=== PATIENT | male | born 2005 | race Caucasian/White ===

== ENCOUNTER 2025-02-10 20:11 | Emergency (ER) | payer MEDICAID ==
[~2025-02-10] VITALS: Ht 170.2 cm; Wt 62.7 kg
[2025-02-10 21:52] LABS: BASOPHILS % (AUTO) 0.5 % (0-1); EOSINOPHILS # (AUTO) 0.1 X10'3 (0-0.9); EOSINOPHILS % (AUTO) 1.9 % (0-6); HEMATOCRIT 46.8 % (42.0-52.0); HEMOGLOBIN 16.5 g/dl (14.0-17.9); LYMPHOCYTES # (AUTO) 2.3 X10'3 (1.1-4.8); LYMPHOCYTES % (AUTO) 30.8 % (21-51); MEAN CORPUSCULAR HEMOGLOBIN 29.3 PG (27.0-31.0); MEAN CORPUSCULAR HGB CONC 35.2 g/dL (33.0-36.5); MEAN CORPUSCULAR VOLUME 83.3 FL (78-98); MEAN PLATELET VOLUME 9.2 FL (7.4-10.4); MONOCYTES # (AUTO) 0.7 X10'3 (0-0.9); NEUTROPHILS # (AUTO) 4.3 X10'3 (1.8-7.7); NEUTROPHILS % (AUTO) 57.8 % (42-75); PLATELET COUNT 176 X10'3 (140-440); RED BLOOD COUNT 5.62 X10'6 (4.70-6.10); RED CELL DISTRIBUTION WIDTH 13.1 % (11.5-14.5); WHITE BLOOD COUNT 7.4 X10'3 (4.5-11.0)
[2025-02-10 21:54] VITALS: BP 129/81; PULSE 73; O2SAT 100
[2025-02-10 21:59] VITALS: RESP 16
[2025-02-10 22:13] LABS: ALANINE AMINOTRANSFERASE 26 U/L (12-78); ALBUMIN 4.5 G/DL (3.4-5.0); ALBUMIN/GLOBULIN RATIO 1.6 (1.1-1.5); ALKALINE PHOSPHATASE 86 IU/L (46-116); ANION GAP 9 (8-16); ASPARTATE AMINO TRANSFERASE 21 U/L (10-37); BILIRUBIN,TOTAL 0.6 MG/DL (0.1-1.0); BLOOD UREA NITROGEN 12 MG/DL (7-18); CHLORIDE 107 MMOL/L (99-107); CREATININE 0.92 MG/DL (0.60-1.10); GLUCOSE 95 MG/DL (70-104); LIPASE 25 U/L (16-77); POTASSIUM 4.1 MMOL/L (3.5-5.1); SODIUM 145 MMOL/L (135-145); TOTAL PROTEIN 7.3 G/DL (6.4-8.2); eCRCL 113 ML/MIN; eGFR > 90 ML/MIN
[2025-02-10 22:29] LABS: BILIRUBIN,URINE NEGATIVE (Neg); CLARITY,URINE CLEAR (Clear); COLOR,URINE YELLOW (Yellow); GLUCOSE, URINE NEGATIVE (Neg); KETONES,URINE NEGATIVE (Neg); LEUKOCYTE ESTERASE ,URINE NEGATIVE (Neg); NITRITES, URINE NEGATIVE (Neg); OCCULT BLOOD,URINE NEGATIVE (Neg); PROTEIN,URINE NEGATIVE (Neg)
[2025-02-10 22:30] LABS: UA COLLECTION TYPE CLN CATCH MIDSTREAM
[2025-02-10] MEDS: pantoprazole 40mg Tablet.DR PO STA (22:45)
--- NOTE | 2025-02-10 23:19 | Physician Documentation ---
History of Present Illness Chief Complaint: Abdominal Pain Stated Complaint: ABD PAIN Time Seen by MD: 22:12 Source: patient, family Mode of Arrival: POV HPI Patient is seen today with complaints of generalized abdominal discomfort that is been going on off and on for few weeks. Patient is seen today with his he states that he definitely drinks too much soda and caffeinated beverages and none of wire. Patient states he has previously had similar symptoms to this and was told he had gastritis. Patient denies any decreased appetite or fevers or chills or dysuria or the urinary urgency or frequency or chest pain or shortness of breath or nausea, vomiting, diarrhea. Patient has no other concern or complaint at this time. He denies any significant a leaving or aggravating factors. He denies any constipation. He denies any changes in bowel or bladder habits. Review of Systems Constitutional: Denies: chills, fever, weakness Eyes: Denies: pain, blurred vision ENT: Denies: ear pain, nose pain, throat pain, mouth pain Respiratory: Denies: cough, shortness of breath Cardiovascular: Denies: chest pain, palpitations Gastrointestinal: Denies: abdominal pain, nausea, vomiting Genitourinary: Denies: burning, dysuria Male Genitalia: Denies: penile discharge, testicular pain Neurological: Denies: headache, dizziness Musculoskeletal: Denies: pain, swelling Integumentary: Denies: rash, lesions Allergic/Immunologic: Denies: hives, itching Hematologic/Lymphatic: Denies: no symptoms reported Psychiatric: Denies: depression, anxiety Physical Exam Vital Signs: Temperature: 98.0, Source: Oral, Heart Rate: 73, Respiratory Rate: 16, BP: 129/81, Pulse Oximetry: 100, Weight: 62.710 Oxygen Flow Rate: 0 Physical Exam General: Awake and Alert, no acute distress. HEENT: Conjunctiva pink, Sclera clear, Mucus Membranes moist. Neck: Supple without masses and tenderness. Resp: Unlabored. Lungs clear to auscultation bilaterally. Heart: Regular Rate and rhythm, normal S1 and S2 without murmur, rub or gallop. Chest: Patient on exam does have some tenderness to palpation of the right lower ribcage. Abdomen: On exam abdomen is soft, nontender, nondistended, no guarding, no rebound tenderness, normoactive bowel sounds in all four quadrants. Extremities: No cyanosis,clubbing or edema. Skin: Warm and Dry. Progress Results/Orders Results/Orders Orders - HARSH BOURNE Mag & Alum Hydrox/Simeth Susp (Maalox Or (02/10/25 22:24) Lidocaine 2% Viscous (Xylocaine 2% Visco (02/10/25 22:24) Completed Orders - HARSH BOURNE Pantoprazole Tablet (Protonix) (02/10/25 22:27) Medications Received in ER Medications (Trade) Dose Ordered Sig/Leroy Route PRN Reason Start Time Stop Time Status Last Admin Dose Admin (Protonix) 40 mg ONCE STAT PO 02/10/25 22:27 02/10/25 22:31 DC 02/10/25 22:45 40 MG Vital Signs 02/10/25 02/10/25 02/10/25 20:19 21:54 21:59 Temp 98.0 98.0 Pulse 71 73 Resp 16 12 16 B/P (MAP) 145/85 129/81 (97) Pulse Ox 100 100 O2 Flow Rate 0 0 Laboratory Tests Test 02/10/25 21:15 02/10/25 21:21 White Blood Count 7.4 Red Blood Count 5.62 Hemoglobin 16.5 Hematocrit 46.8 Mean Corpuscular Volume 83.3 Mean Corpuscular Hemoglobin 29.3 Mean Corpuscular Hemoglobin Concent 35.2 Red Cell Distribution Width 13.1 Platelet Count 176 Mean Platelet Volume 9.2 Neutrophils (%) (Auto) 57.8 Lymphocytes (%) (Auto) 30.8 Monocytes (%) (Auto) 9.0 Eosinophils (%) (Auto) 1.9 Basophils (%) (Auto) 0.5 Neutrophils # (Auto) 4.3 Lymphocytes # (Auto) 2.3 Monocytes # (Auto) 0.7 Eosinophils # (Auto) 0.1 Basophils # (Auto) 0.0 CBC Comment Sodium Level 145 Potassium Level 4.1 Chloride Level 107 Carbon Dioxide Level 29.0 Anion Gap 9 Blood Urea Nitrogen 12 Creatinine 0.92 Estimated GFR/1.73 m2 > 90 BUN/Creatinine Ratio 13.0 Glucose Level 95 Calcium Level 9.0 Total Bilirubin 0.6 Aspartate Amino Transf (AST/SGOT) 21 Alanine Aminotransferase (ALT/SGPT) 26 Alkaline Phosphatase 86 Total Protein 7.3 Albumin 4.5 Globulin 2.8 Albumin/Globulin Ratio 1.6 H Lipase 25 Chemistry Comments Urine Specimen Description Cln catch midstream Urine Color Yellow Urine Clarity Clear Urine pH 7.0 Urine Specific [place] 1.020 Urine Protein Negative Urine Glucose (UA) Negative Urine Ketones Negative Urine Occult Blood Negative Urine Nitrite Negative Urine Bilirubin Negative Urine Urobilinogen 1.0 Urine Leukocyte Esterase Negative Urine Culture Indicated Not ind Volume Urine Centrifuged 10 ml Urine Comment Medical Decision Making Findings Patient is seen today with complaints of generalized abdominal discomfort that is been going on off and on for few weeks. Patient is seen today with his he states that he definitely drinks too much soda and caffeinated beverages and none of wire. Patient states he has previously had similar symptoms to this and was told he had gastritis. Patient denies any decreased appetite or fevers or chills or dysuria or the urinary urgency or frequency or chest pain or shortness of breath or nausea, vomiting, diarrhea. Patient has no other concern or complaint at this time. He denies any significant a leaving or aggravating factors. He denies any constipation. He denies any changes in bowel or bladder habits. Patient's laboratory findings were completely unremarkable including his urinalysis being unremarkable. Patient was given GI cocktail with viscous lidocaine, Maalox, and pantoprazole. Patient did admit some relief of symptoms. Prescription of omeprazole to be taken as prescribed sent to patient's pharmacy. Patient will improve patient's healthy diet and activity level as tolerated and will follow up with primary care in 2-5 days if no better as needed sooner. Return to ED with any worsening, concerning or changing symptoms. Departure Disposition: 01 HOME / SELF CARE / HOMELESS Impression: Primary Impression: Abdominal pain Qualified Codes: R10.84 - Generalized abdominal pain Condition: Improved Discharge Instructions: Abdominal Pain (Nonspecific) Additional Instructions: Patient's laboratory findings were completely unremarkable including his urinalysis being unremarkable. Patient was given GI cocktail with viscous lidocaine, Maalox, and pantoprazole. Patient did admit some relief of symptoms. Prescription of omeprazole to be taken as prescribed sent to patient's pharmacy. Patient will improve patient's healthy diet and activity level as tolerated and will follow up with primary care in 2-5 days if no better as n eeded sooner. Return to ED with any worsening, concerning or changing symptoms. Referrals: NO PRIMARY CARE PROVIDER (PCP) Prescriptions Omeprazole (Prilosec) 40 Mg Capsule 1 CAP PO DAILY for 30 Days, #30 CAP Prov: HARSH BOURNE PAC 02/10/25 Signature Scribe Signature: No scribe Attestation: No scribe HARSH BOURNE PAC Feb 10, 2025 23:19
[2025-02-10] MEDS: LIDOcaine 2% Viscous 15ml cup MM STA (23:21)
[2025-02-10] MEDS: mag hydrox/Alum hydrox/simeth 30ml oral suspension PO STA (23:21)
[2025-02-10] MEDS ORDERED: OMEP40CA21 PO (23:21)
[2025-02-10 23:28] VITALS: TEMP 98
== END 2025-02-10 23:27 | disposition home or self-care (01) ==
LOC: ER 20:12
DX: R10.84 Generalized abdominal pain (principal)
CPT/HCPCS: 36415; 80053; 81003; 83690; 85025; 99284